=== PATIENT | female | born 1975 | race Caucasian/White ===

== ENCOUNTER 2024-02-23 19:41 | Emergency (ER) | payer OTHER, SELFPAY ==
[2024-02-23 19:53] VITALS: BP 145/87; PULSE 106; RESP 18; TEMP 36.7; O2SAT 98
--- NOTE | 2024-02-23 20:10 | ED.SKABFB ---
HPI - Skin/Abscess/Foreign Bdy General Chief complaint: Skin/Abscess/Foreign Body Stated complaint: open wound on stomach/leg Time Seen by Provider: 02/23/24 19:58 Source: patient, RN notes reviewed and old records reviewed Mode of arrival: ambulatory Limitations: no limitations History of Present Illness HPI narrative: 48-year-old female to [facility] for complaint of wounds to lower right abdomen and lower left leg for 3 days. Patient endorses history of IV drug use, last used meth today. Patient endorses history of COPD, emphysema, hypertension, tobacco use, use of iv meth. patient denies nausea, vomiting, diarrhea, fever, myalgias, chills. Patient able to tolerate fluids by mouth. Related Data Home Medications Medication Instructions Recorded Confirmed No Home Medications 02/23/24 02/23/24 Allergies Allergy/AdvReac Type Severity Reaction Status Date / Time codeine Allergy Unknown Unknown Verified 02/23/24 20:05 Penicillins Allergy Unknown Unknown Verified 02/23/24 20:05 Review of Systems Review of Systems: All systems reviewed & are unremarkable except as noted in HPI and below Constitutional: Constitutional: Reports as per HPI, Denies body ache(s), Denies chills and Denies fever(s) Eyes: Eyes: Reports no additional eye complaints ENT: Reports system reviewed and no additional complaints, except as documented Cardiovascular: Cardiovascular: Reports no additional cardiovascular complaints, Denies chest pain and Denies dyspnea Respiratory: Respiratory: Reports no additional respiratory complaints, Denies cough and Denies dyspnea Musculoskeletal: Musculoskeletal: Reports no additional musculoskeletal complaints Integumentary/Breasts: Skin/Breast: Reports wounds ( One on lower right abdomen; 1 anterior lower left leg) Neurologic: Reports system reviewed and no additional complaints, except as documented Psychiatric: Psychiatric: Reports no additional psychiatric complaints PMFSH Comments At the time of my signature, I reviewed and agree with the nursing past medical, surgical, social, and family history. There is no relevant family history pertinent to the patient complaint. Exam Const: General: cooperative, no acute distress, alert, poor hygiene, uncomfortable, well nourished and edematous; No in distress Nutritional Appearance: well nourished Orientation/consciousness: patient oriented x3 Limitations: no limitations HENMT: Head: normal to inspection Ears: external ears normal Face/Nose/Sinus: Normal external nose present, Normal nares present, normal facial exam, No erythema and No edema Face and sinus: normal facial exam, no erythema and no edema Mouth: Yes Normal oral and palatal mucosa present Eyes: General: appearance normal, both eyes and all related structures Neck: Neck: normal visual inspection, full ROM and no meningeal signs Lymphatic: no lymphadenopathy noted and no lymphedema noted Chest: Chest palpation & inspection: normal inspection of the chest Resp: Effort & Inspection: normal respiratory effort and able to speak in complete sentences Auscultation: wheezes expiratory wheezes, inspiratory wheezes and throughout Cardio: Jugular venous distension: no JVD Rate: regular rate Rhythm: regular rhythm Back/Spine/Pelvis: Cervical Spine: cervical ROM normal Skin: General skin exam: wounds noted ( tunneling wound right lower abdomen; anterior left lower leg) Other: Tunneling wound right lower abdomen purulent drainage; wound anterior left lower leg with purulent drainage. , Neuro: General: patient oriented x3, gait normal, moves all extremities and no meningeal signs Speech: normal speech Gait exam (Neuro): Normal gait present Extrem: General: edema left and pedal edema bilaterally (worse on left (3+)) Left lower extremity: edema Details: pitting and 3+ and foot Details: abnormal to inspection Details: joint swelling ( left ankle) and erythematous, tenderness Location: o
== END 2024-02-23 20:11 | disposition short-term general hospital (02) ==
LOC: EXPBETH 19:46
PROVIDERS: Emergency Provider Nurse Practitioner Family
DX: S31.103A Unspecified open wound of abdominal wall, right lower quadrant without penetration into peritoneal cavity, initial encounter (principal); S81.802A Unspecified open wound, left lower leg, initial encounter; X58.XXXA Exposure to other specified factors, initial encounter; F15.90 Other stimulant use, unspecified, uncomplicated; R00.0 Tachycardia, unspecified; L53.9 Erythematous condition, unspecified; R06.2 Wheezing; I10 Essential (primary) hypertension; J44.9 Chronic obstructive pulmonary disease, unspecified
CPT/HCPCS: 99202; G0463